=== PATIENT | male | born 1985 | race African-American/Black ===

== ENCOUNTER 2023-04-15 10:39 | Day surgery (SDC) | payer OTHER ==
[~2023-04-15] VITALS: Ht 180.3 cm; Wt 83.0 kg
[2023-04-15] MEDS ORDERED: LR 1,000 ML IV SCH (11:35)
[2023-04-15] MEDS ORDERED: propofoL 200 MG/20 ML VIAL As Ordered ONE (11:43)
[2023-04-15] MEDS ORDERED: fentaNYL 100 MCG/2 ML INJECTION As Ordered ONE ×2 (11:43→13:54)
[2023-04-15] MEDS ORDERED: MIDAZOLAM INJ 2MG/2ML VIAL As Ordered ONE (11:43)
[2023-04-15] MEDS ORDERED: LIDOCAINE 2% 100MG/5ML SDV (FOR ANES.) As Ordered ONE (11:43)
[2023-04-15] MEDS ORDERED: ROCURONIUM BROMIDE 50MG/5ML VIAL As Ordered ONE (11:43)
[2023-04-15] MEDS ORDERED: ONDANSETRON 4MG 2ML VIAL As Ordered ONE ×2 (12:24→14:58)
[2023-04-15] MEDS ORDERED: SUGAMMADEX SODIUM 500 MG/5 ML VIAL (BRIDION) As Ordered ONE (12:28)
[2023-04-15] MEDS ORDERED: EPINEPHrine 1MG/ML INJ 30ML MD-VIAL As Ordered ONE (13:24)
[2023-04-15] MEDS ORDERED: KETOROLAC 60MG 2ML VIAL As Ordered ONE (13:57)
[2023-04-15] MEDS ORDERED: ACETAMINOPHEN 1000MG 100ML IV BAG As Ordered ONE (13:58)
[2023-04-15] MEDS ORDERED: oxyCODONE 5MG TAB PO PRN (14:55)
[2023-04-15] MEDS ORDERED: ONDANSETRON 4MG 2ML VIAL IV PRN (14:55)
[2023-04-15 15:53] VITALS: BP 148/86; TEMP 97.2; O2SAT 99
== END 2023-04-15 15:55 | disposition home or self-care (01) ==
LOC: M SDC 10:39
PROVIDERS: ATTEND Otolaryngology
DX: S02.2XXA Fracture of nasal bones, initial encounter for closed fracture (principal); W27.8XXA Contact with other nonpowered hand tool, initial encounter; Y92.89 Other specified places as the place of occurrence of the external cause; J30.1 Allergic rhinitis due to pollen; Z72.0 Tobacco use
CPT/HCPCS: 21320; J0131; J0171; J1100; J1885; J2250; J2405; J3010